=== PATIENT | female | born 1990 | race Caucasian/White ===

== ENCOUNTER 2022-11-19 15:09 | Outpatient (CLI) | payer OTHER, SELFPAY ==
--- NOTE | 2022-11-19 15:15 | CRLHL7_ITS ---
For Patients: As a result of the Cures Act, medical imaging exams and procedure reports are released immediately into your electronic medical record. You may view this report before your referring provider. If you have questions, please contact your health care provider. INDICATION: LT NECK SWELLING/PALP LUMP COMPARISON: none TECHNIQUE: Moore scale and color Doppler images were acquired of the thyroid gland. FINDINGS: Solid hypoechoic nodule inferior pole right thyroid lobe measuring 1.1 x 0.8 x 0.9 cm. Similar hypoechoic nodule upper pole right thyroid lobe measuring 1.3 x 0.7 x 0.8 cm. Both of these could be followed at 1 year intervals. Solid heterogeneous hypoechoic and hyperechoic nodule centered about the midportion of the left thyroid lobe measuring 5.2 x 3.7 x 3.6 cm. Internal vascularity is present. The right lobe measures 5.7 x 1.5 x 1.9 cm and the left lobe measures 7.0 x 4.2 x 3.8 cm in size. The isthmus measures 4 millimeters. IMPRESSION: 5.2 cm suspicious nodule left thyroid lobe. FNA recommended. Dictated by Clayton Perry MD @ 11/20/2022 10:19:37 AM (Electronically Signed)
[2022-11-19 16:09] LABS: Basophils Absolute Auto 0.05 K/uL (0.00-0.30); Basophils Percent Auto 0.8 % (0.0-3.0); Eosinophils Absolute Auto 0.15 K/uL (0.00-0.50); Eosinophils Percent Auto 2.3 % (0.0-7.0); Hematocrit 40.5 % (33.0-51.0); Hemoglobin* 13.9 gm/dL (12.0-16.0); Lymphocytes Absolute Auto 2.05 K/uL (0.90-2.90); Lymphocytes Percent Auto 31.8 % (20-44); Mean Corpuscular HGB Conc 34 gm/dL (32-36); Mean Corpuscular Hemoglobin 29 pg (26-34); Mean Corpuscular Volume 84 fL (80-100); Monocytes Percent Auto 9.5 % (0.0-11.0); Neutrophils Absolute Auto 3.58 K/uL (1.7-7.0); Neutrophils Percent Auto 55.6 % (42.0-72.0); Platelet Count* 301 K/uL (140-440); RDW Coefficient of Variation % 12.6 % (11.5-15.5); Red Blood Count 4.83 m/uL (4.00-5.20); White Blood Count* 6.44 K/uL (4.50-11.00)
[2022-11-19 16:29] LABS: Albumin* 4.9 g/dL (3.3-5.0); Chloride* 106 mmol/L (96-114); Slide Review Reflex No; Sodium* 141 mmol/L (135-149)
[2022-11-19 16:32] LABS: Alanine Aminotransferase* 28 U/L (4-35); Alkaline Phosphatase* 63 U/L (40-150); Aspartate Amino Transferase* 23 U/L (12-35); Bilirubin Total* 0.4 mg/dL (0.1-1.5); Blood Urea Nitrogen* 16 mg/dL (5-24); Carbon Dioxide* 28 mmol/L (20-32); Creatinine* 0.8 mg/dL (0.5-1.5); Estimated Glomerular Filt Rate 99 ml/min; Glucose* 93 mg/dL (60-115); Total Protein* 8.2 g/dL (6.0-8.3)
[2022-11-19 16:33] LABS: Calcium* 9.4 mg/dL (8.4-10.6)
[2022-11-19 17:14] LABS: Free T4 Free Thyroxine* 1.47 ng/dL (0.70-1.85)
[2022-11-19 17:15] LABS: Vitamin D 25 Hydroxy* 38 ng/mL (30-80)
[2022-11-19 17:28] LABS: Thyroid Stimulating Hormone* 0.984 uIU/mL (0.270-4.20)
[2022-11-21 19:18] LABS: TPO Antibody 776.3 IU/mL (0.0-9.0); Thyroglobulin Antibody 1363.9 IU/mL (0.0-4.0)
[2022-11-21 23:26] LABS: Free T3 2.8 pg/mL (2.5-4.3)
[2022-11-22 06:47] LABS: Zinc, Serum/Plasma 78.3 ug/dL (60.0-120.0)
== END 2022-11-19 15:10 | disposition home or self-care (01) ==
PROVIDERS: PCP Nurse Practitioner Family
DX: E07.9 Disorder of thyroid, unspecified (principal)
CPT/HCPCS: 36415; 76536; 80053; 82306; 84432; 84439; 84443; 84481; 84630; 85025; 86376; 86800